=== PATIENT | male | born 1950 | race Caucasian/White ===

== ENCOUNTER 2022-04-15 11:27 | Outpatient (CLI) | payer MEDICARE, BC, SELFPAY ==
--- NOTE | 2022-04-15 09:45 | DI.RAD_ITS ---
Exam(s) XR CHEST 2V PA LATERAL EXAM: XR CHEST 2V PA LATERAL CLINICAL HISTORY: cough, ? pneumonia,r05.9 TECHNIQUE: 2D digital imaging was performed of the chest. Two images were obtained. PA and lateral views were obtained. COMPARISON: No exams were available for comparison FINDINGS: MEDIASTINUM: Normal. HEART: Normal. PULMONARY VASCULATURE: Normal. LUNGS: Clear. PLEURAL SPACE: No pleural effusion or pneumothorax. BONE:Within normal limits for the patient's age. There is an old T12 compression deformity. OTHER FINDINGS:Normal. IMPRESSION: No acute pulmonary findings. DATA REPOSITORY: RADIATION DOSE DELIVERED:
== END 2022-04-15 11:47 ==
LOC: DI 11:34
PROVIDERS: Visit Provider Physician Assistant
DX: R05.8 Other specified cough (principal)
CPT/HCPCS: 71046

== ENCOUNTER → 2023-06-13 04:26 | Outpatient (CLI) | payer MEDICARE, BC, SELFPAY ==
--- NOTE | 2023-06-13 07:00 | DI.MRI_ITS ---
Exam(s) MR IAC BRAIN WO EXAM: MR IAC BRAIN WO CLINICAL HISTORY: vertigo,sensation of fullness lt ear,h93.8x2,r42 TECHNIQUE: Multiplanar multisequence MRI of the brain was performed. COMPARISON: No exams were available for comparison FINDINGS: CEREBRAL PARENCHYMA: There is no evidence of intracranial hemorrhage, mass effect, or shift of midline structures. There are no extra-axial fluid collections. Ventricles are not enlarged or shifted. There is no significant focal signal abnormality in the cerebellar hemispheres nor within the hussein, m idbrain, and thalami. There is no significant abnormal signal abnormality in the periventricular white matter. There is no significant focal signal abnormality evident on diffusion imaging to suggest acute ischem ic event. SWI: No microhemorrhages evident. IAC's: There are no masses in the cerebellopontine angles. On the high-resolution sub mm slice thick ness space sequence there is no evidence of intra canalicular acoustic neuroma-schwannoma. The 7th a nd 8th cranial nerves appear unremarkable within the internal auditory canals bilaterally. PITUITARY GLAND: No mass nor parasellar abnormality. No obvious abnormality in the cavernous sinuses. FLOW VOIDS: The expected flow void are noted. No evidence of obvious aneurysm nor obvious vascular ma lformation. PARANASAL SINUSES: The visualized paranasal sinuses appear unremarkable. No obvious finding ORBITS: No obvious findings. IMPRESSION: No significant acute intracranial findings on this noninfused MRI scan of the brain. No evidence of mass in the cerebellopontine angles and no evidence of intra canalicular acoustic neur renae/schwannoma. DATA REPOSITORY:
== END ==
PROVIDERS: PCP Family Medicine; Visit Provider Registered Nurse Maternal Newborn
DX: H93.8X2 Other specified disorders of left ear (principal); R42 Dizziness and giddiness
CPT/HCPCS: 70551

== ENCOUNTER 2024-04-20 15:54 | Emergency (ER) | payer MEDICARE, BC, SELFPAY ==
[2024-04-20 15:56] VITALS: BP 176/82; PULSE 86; RESP 18; TEMP 36.5; O2SAT 97
--- NOTE | 2024-04-20 16:15 | DI.RAD_ITS ---
Exam(s) XR HUMERUS LT EXAM: XR HUMERUS LT CLINICAL HISTORY: Fall, Decreased ROM. TECHNIQUE: 2D digital imaging was performed. Two views. COMPARISON: No exams were available for comparison FINDINGS: Exam is limited by overlying clothing BONES: No acute fracture is present. No bony destructive lesion is seen. Visualized portion of elbow and shoulder joints are unremarkable. SOFT TISSUE: Normal rounded calcification in the soft tissues in the mid arm appears chronic. IMPRESSION: No acute abnormality. DATA REPOSITORY: RADIATION DOSE DELIVERED:
--- NOTE | 2024-04-20 16:26 | ED.GENADUL_ITS ---
Discharge Plan Disposition Patient Disposition: Home Condition: Stable Discharge Details Clinical Impression: Fall due to slipping on ice or snow, Laceration of right palm, Sprain of upper arm, left Primary Care Provider: Stephy Hollingsworth ED Provider: Mayuri Miles Home Meds and New Rx's Prescriptions: Continued fluticasone propionate [Flonase Allergy Relief] 50 mcg/actuation spray,suspension 2 spray intranasal DAILY Qty: 16 6RF Rx Instructions: administer into each nostril atorvastatin 10 mg tablet 20 mg PO DAILY minocycline 50 mg capsule 100 mg PO DAILY Rx Instructions: may take twice daily for flares fojgrhvvhzr-jyajtykqq-qfa C-Mn [Glucosamine Chondroitin MaxStr] 500-400 mg capsule PO ibuprofen 200 mg tablet 400 mg PO TID PRN levothyroxine 50 mcg tablet 50 mcg PO .6 times a week Rx Instructions: and 2 tablets once a week lorazepam 0.5 mg tablet 0.5 mg PO QHS PRN Rx Instructions: for sleep magnesium 250 mg tablet 250 mg PO DAILY qetghdkf-mft-vdmcqec gluconate [Centrum] 9 mg iron/ 15 mL (15 mL) liquid 15 ml PO DAILY omega 4-jal-zhk-fish oil 100-400-1,000 mg capsule 1 cap PO DAILY omeprazole 20 mg capsule,delayed release(DR/EC) 20 mg PO DAILY tramadol 50 mg tablet 50 mg PO Q6H PRN Rx Instructions: for pain Discharge Instructions Instructions: Elbow Sprain ED, Laceration Repair With Glue ED Additional Instructions: X-rays are within normal limits at this time. Please use a sling as needed for comfort. Rest ice compression elevation. You may do some light stretching exercises after initial pain has subsided. The Dermabond should slough off on its own in approximately 4 to 6 days. Please return or be seen sooner for any signs of infection including increased redness, red streaks drainage or swelling. Please take Tylenol or Ibuprofen with food every 4-6 hours as needed for pain and swelling. Follow up with primary care provider in 3-5 days. Return to ED sooner if any worsening or concerns. Thank you for allowing us to care for you today. Referrals: Stephy Hollingsworth MD [Primary Care Provider] - 2 weeks Discharge Data Discharge Date/Time-TO BE ENTERED AT DEPARTURE: 04/20/24 18:09 HPI General Mode of arrival: ambulatory . Date/Time Provider Initiated Documentation: 04/20/24 15:58 . Limitations to Documentation: no limitations . Information obtained by: patient, RN notes reviewed and old records reviewed . HPI Narrative: 73-year-old male presents to the ER after a mechanical slip and fall on the ice around 1 PM this afternoon. He reports that he slipped landing on his right wrist, right hip and hit his left elbow on the ice. He is having difficulty with left arm abduction. Distal CMS intact. He is able to move and flex and extend his wrist bilaterally. He does have a laceration noted to his right palmar surface bleeding controlled. He is also complaining of mild tenderness to his right hip. He is ambulatory without difficulty. He does not think he has had a tetanus vaccination the last 5 to 10 years. He denies hitting his head no neck pain no headache no back pain. Denies any other associated symptoms or concerns. He is from out of town, does have a past medical history of high cholesterol, CREST syndrome, hypothyroidism, iron deficiency, type 2 diabetes, Related Data Home Medications ?Medication ?Instructions ?Recorded ?Confirmed atorvastatin 10 mg tablet 20 mg PO DAILY 04/08/23 04/20/24 euyskigenqz-vrlqowsrs-qgg C-Mn 500 cap PO 04/08/23 06/06/23 mg-400 mg capsule (Glucosamine Chondroitin Maximum Strength) ibuprofen 200 mg tablet 400 mg PO TID PRN 04/08/23 04/20/24 levothyroxine 50 mcg tablet 50 mcg PO .6 times a week 04/08/23 04/20/24 lorazepam 0.5 mg tablet 0.5 mg PO QHS PRN 04/08/23 04/20/24 magnesium 250 mg tablet 250 mg PO DAILY 04/08/23 04/20/24 minocycline 50 mg capsule 100 mg PO DAILY 04/08/23 04/20/24 nxewdllg-dcov-mnxvaou gluconate 9 15 ml PO DAILY 04/08/23 04/20/24 mg iron/15 mL (15 mL) oral liquid (Centrum) omega 3-dha 100 mg-epa 400 mg-fish 1 cap PO DAILY 04/08/23 04/20/24 oil 1,000 mg capsule omeprazole 20 mg capsule,delayed 20 mg PO DAILY 04/08/23 04/20/24 release tramadol 50 mg tablet 50 mg PO Q6H PRN 04/08/23 04/20/24 fluticasone propionate 50 2 spray intranasal DAILY #16 grams 05/03/23 04/20/24 mcg/actuation nasal spray,suspension (Flonase Allergy Relief) Previous Rx's ?Medication ?Instructions ?Recorded fluticasone propionate 50 2 spray intranasal DAILY #16 grams 05/03/23 mcg/actuation nasal spray,suspension (Flonase Allergy Relief) Allergies Allergy/AdvReac Type Severity Reaction Status Date / Time No Known Allergies Allergy Verified 04/20/24 16:00 General Stated Complaint: Orthopedic AMAYA: 4 Review of Systems All systems reviewed & are unremarkable except as noted in HPI and below Exam Narrative Exam Narrative: General: Well Developed, Awake and Alert, conversant. Skin: Warm and Dry he does have black discoloration noted to his face which appears chronic. HEENT: Head: No palpable deformities, Normocephalic Eyes: Pupils PERRLA, EOM's intact. No periorbital eccymosis or step off Ears: Canal patent. Tympanic membranes are clear . No ruff's sign, no hemptympanum. Nose/Face: Atraumatic. Facial bones nontender to palpation and stable with manipulation. Mouth/Throat: No intraoral trauma. Teeth and mandible are intact. Neck: No midline tenderness, no step off, no deformity to palpation of C-spine. Trachea midline. Chest: No surface trauma. Nontender without crepitus or deformity. Lungs clear to ausculatation bilaterally. Heart: RRR, no rubs, murmurs or gallop. Abdomen: No abrasions, ecchymosis, or surface trauma. Nondistended. Nontender to palpation no guarding, rebound, or rigidity. Pelvis: Nontender to palpation and stable to compression. Femoral pulses strong and equal Extremities: Laceration right palmar surface, bleeding controlled. Sensation intact. Peripheral pulses intact and equal. Difficulty moving his left arm with abduction. Neuro: ANO x4, GCS 15, cranial nerves II through XII intact. Motor and sensory exam nonfocal. Reflexes are symmetric. Course Vital Signs Vital signs: Vital Signs Temperature 36.5 C 04/20/24 15:56 Pulse 86 04/20/24 15:56 Respiratory Rate 18 04/20/24 15:56 Blood Pressure 176/82 H 04/20/24 15:56 Pulse Oximetry 97 04/20/24 15:56 Temperature 36.5 C 04/20/24 15:56 Pulse 86 04/20/24 15:56 Respiratory Rate 18 04/20/24 15:56 Blood Pressure 176/82 H 04/20/24 15:56 Pulse Oximetry 97 04/20/24 15:56 Medical Decision Making 73-year-old male presents to the ER after a mechanical slip and fall on the ice around 1 PM this afternoon. He reports that he slipped landing on his right wrist, right hip and hit his left elbow on the ice. He is having difficulty with left arm abduction. Distal CMS intact. He is able to move and flex and extend his wrist bilaterally. He does have a laceration noted to his right palmar surface bleeding controlled. He is also complaining of mild tenderness to his right hip. He is ambulatory without difficulty. He does not think he has had a tetanus vaccination the last 5 to 10 years. He denies hitting his head no neck pain no headache no back pain. Denies any other associated symptoms or concerns. He is from out of town, does have a past medical history of high cholesterol, CREST syndrome, hypothyroidism, iron deficiency, type 2 diabetes, Will give a tetanus booster, wound care and Dermabond to his laceration on his palm. Will get x-ray of his left humerus. At this time CT imaging deferred due to no reports of head injury loss of consciousness or neck or back pain. He is able to flex and extend his wrist so fracture is unlikely. Differential diagnose includes not limited to occult fracture, sprain, X-ray of left humerus and visualized portions of shoulder and elbow are within normal limits. Will give patient a sling. Will also instruct on exercises over the next few days after initial pain is gone. This text was generated using [employer] system, please disregard any oddities of phrase or misspellings. Imaging Data Radiologic Study: Imaging: X-Ray Radiologist's impression: EXAM: XR HUMERUS LT CLINICAL HISTORY: Fall, Decreased ROM. TECHNIQUE: 2D digital imaging was performed. Two views. COMPARISON: No exams were available for comparison FINDINGS: Exam is limited by overlying clothing BONES: No acute fracture is present. No bony destructive lesion is seen. Visualized portion of elbow and shoulder joints are unremarkable. SOFT TISSUE: Normal rounded calcification in the soft tissues in the mid arm appears chronic. IMPRESSION: No acute abnormality. Quality:SDOH Health Related Social Needs: No Data to Display PFSH All Active Problems (Updated 04/20/24 @ 17:38 by Mayuri Miles NP) Sprain of upper arm, left (Acute) Laceration of right palm (Acute) Fall due to slipping on ice or snow (Acute) Sensation of fullness in left ear (Acute) Sinus pressure (Acute) Medical History Other specified hypothyroidism Palpitations Iron deficiency Thoracic compression fracture Osteopenia Abnormal prostate exam Chronic midline low back pain without sciatica History of colon polyps Pure hypercholesterolemia Type 2 diabetes mellitus Mantoux: positive GAVE (gastric antral vascular ectasia) CREST syndrome Vertigo Surgical History History of lumbar laminectomy Family History Father , 69 No problems noted. 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 Enjoys walking on his treadmill. PAWSS Have you Been Recently Intoxicated or Drunk Within the Last 30 days?: No Have you Ever Experienced Previous Episodes of Alcohol Withdrawal?: No Have you ever Experienced Withdrawal Seizures?: No Have you ever Experienced Delirium Tremens(DT)s?: No Have you ever undergone Alcohol Rehabilitation Treatment (i.e, inpt ot outpatient treatment programs)?: No Have you ever Experienced Blackouts?: No Have you ever Combined Alcohol with other Downers within the last 90 days?: No Have you ever Combined Alcohol with any other Substance of Abuse during the last 90 days?: No Positive Blood Alcohol level on Presentation? [PCS.BAL]: No Evidence of Increased Autonomic Activity (i.e. HR>120, tremor, sweating, agitation, nausea)?: No Result: 0
[2024-04-20 17:05] VITALS: BP 142/74; PULSE 72; RESP 16; O2SAT 100
[2024-04-20] MEDS: Diph,Pertuss(Acell),Tet Vac/Pf 0.5 ML SYR IM (17:08)
[2024-04-20 18:14] VITALS: BP 138/76; PULSE 76; RESP 18; TEMP 37.1; O2SAT 98
--- NOTE | 2024-04-24 09:38 | NUR.NOTE ---
Access chart to get the discharge diagnosis for [facility] billing requisition. Nursing Note:
== END 2024-04-20 18:09 | disposition home or self-care (01) ==
PROVIDERS: Emergency Provider Registered Nurse Emergency; PCP Family Medicine
DX: S61.411A Laceration without foreign body of right hand, initial encounter (principal); S53.492A Other sprain of left elbow, initial encounter; E78.00 Pure hypercholesterolemia, unspecified; E11.9 Type 2 diabetes mellitus without complications; D50.9 Iron deficiency anemia, unspecified; M34.1 CR(E)ST syndrome; Z23 Encounter for immunization; W00.0XXA Fall on same level due to ice and snow, initial encounter; Y93.01 Activity, walking, marching and hiking; Y92.89 Other specified places as the place of occurrence of the external cause
CPT/HCPCS: 12001; 90471; 90715; 99283; 73060